=== PATIENT | male | born 1975 | race Caucasian/White ===

== ENCOUNTER 2021-09-26 16:06 | Inpatient (IN) ==
[2021-09-26] MEDS ORDERED: ONDANSETRON INJ 2 MG/ML 2 ML VIAL IV STA (16:14)
--- NOTE | 2021-09-26 16:38 | Emergency Department Note ---
Impression & Plan SBO (small bowel obstruction), Crohn disease, Colostomy present, Abdominal pain ED Provider Note NAME: LINDA FOLEY AGE: 46 SEX: M : 1975 ARRIVES VIA: Walk-In INFORMANT: Patient, ED PROVIDER(S): Darryl Zacarias MD Chief Complaint: Abdominal pain HPI: Patient presents due to concern for worsening abdominal pain and decreased ostomy output from his left lower quadrant ostomy. The patient states this feel s fairly similar to when he had a prior bowel obstruction approximately a year ago. The patient is followed with GI and has a known parastomal hernia. The patient follows with GI and rolling siblings in [facility] Dr. Fox. Patient did have nausea with associated vomiting that was nonbloody nonbilious. The patient denies any fevers or chills. The patient has known history of occasional alcohol use but none recently. The patient denies any falls or trauma. The patient did self administer an enema in the ostomy and he states nothing came out at that time. Patient does have pain that is achy well localized to left lower quadrant near the ostomy and states it seems more full than normal. Patient denies any blood from ostomy site. Patient denies any narcotics use or antihistamines. ROS: See HPI for pertinent positives and negatives. A total of 10 systems were reviewed and otherwise negative. Past medical history: See below Surgical history: See below Social history: See below Physical Exam: GENERAL: NAD, wearing a mask, non-toxic. EYE EXAM: Normal conjunctiva. PERRL, no anisocoria and EOM's grossly intact w/o pain. NECK: Supple, no nuchal rigidity, no adenopathy, non-tender. No signs of meningismus. LUNGS: Clear to auscultation. Normal chest wall mechanics. HEART: NSR, no MRG. ABDOMEN: Abdomen soft, left lower quadrant ostomy in place with bag, parastomal hernia noted, TTP present. No guarding or rebound. BACK: No CVA TTP. SKIN: No rashes and no bruising. UPPER EXTREMITIES: Upper extremities are grossly normal. LOWER EXTREMITIES: Grossly normal, no edema. NEURO EXAM: A&O x3, cranial nerves II-XII grossly intact, normal speech, moves all 4 extremities on command w/o issue. Differential diagnoses: Appendicitis, testicular torsion, infections, diverti culitis, UTI, obstruction, mesenteric ischemia, aortic pathology, inflammatory bowel disease, renal colic, PUD, pancreatitis, biliary pathology, hernia, volvulus, constipation, as well as other pathologies. Course: Patient was seen and evaluated the bedside. Full history physical exam was performed. Imaging Studies: See Below Cardiac monitoring: An order was placed for continuous cardiac monitoring. The monitor shows a rate of 82 with sinus rhythm. MDM: Patient presents due to concern for abdominal pain. Blood work is obtained along with CT abdomen pelvis. Patient blood work shows a white count of 12 with a normal H&H and platelet count. The patient's kidney function is unremarkable. The patient's urinalysis does not show any obvious infection. Patient CT abdomen pelvis does show likely partial small bowel obstruction associated with the patient's parastomal hernia. I did speak with the on-call general surgeon Dr. Castro. Given the complicated nature he stated that conservative management may be appropriate but that if this was an operative needed that he would not be able to proceed with surgery given the complicated nature. I did convey this discussion with the patient who stated that he believes that it will improve as it has in the past. Patient did have an NG that was ordered. The patient did state that he had a small amount of stool coming from the ostomy in the interim. The patient was admitted to the medicine service by Dr. Trinh. 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 Beliefs That Will Affect Care: None Current Living Situation: Alone Other Information That Helps Us Care for You: No Feels Safe at Home: Yes Safety Concerns: Feels Safe At This Time Assistive Devices: Contacts Allergies Allergies Allergy/AdvReac Type Severity Reaction Status Date / Time No Known Allergies Allergy Unverified 09/26/21 19:26 Home Meds Home Medications Medication Instructions Recorded Confirmed azathioprine 50 mg tablet 150 mg PO QAM 09/26/21 09/26/21 Results & Data (ED) Vital Signs Vital Signs - 24 hr 09/26/21 16:10 09/26/21 17:01 09/26/21 17:14 Temperature 36.3 C L Temperature Source Temporal Artery Scan Pulse Rate 80 66 Pulse Rate from SpO2 Sensor 66 Respiratory Rate 18 16 Respiratory Effort / Characteristics Non-Labored Respiratory Depth Normal Respiratory Pattern Regular Blood Pressure 171/114 H Blood Pressure Mean 133 Pulse Oximetry 100 100 100 Oxygen Delivery Method Room Air Room Air Sepsis Recent Fever Within 48 Hours No Sepsis New/Unexplained Change in Mental Status No Sepsis Action Taken by Nursing No Action Required 09/26/21 17:22 09/26/21 18:00 Temperature Temperature Source Pulse Rate 67 62 Pulse Rate from SpO2 Sensor 68 63 Respiratory Rate 17 18 Respiratory Effort / Characteristics Respiratory Depth Respiratory Pattern Blood Pressure 140/98 142/83 H Blood Pressure Mean 112 102 Pulse Oximetry 100 95 Oxygen Delivery Method Sepsis Recent Fever Within 48 Hours Sepsis New/Unexplained Change in Mental Status Sepsis Action Taken by [facility] Medications Current Medication List: was personally reviewed by me Laboratory Data Attestation: I reviewed the patient's lab results. Result diagrams: 09/26/21 16:55 09/26/21 16:55 Lab Results 09/26/21 09/26/21 09/26/21 Range/Units 16:45 16:55 16:55 WBC 12.61 H (4.8-10.8) K/uL RBC 4.71 (4.7-6.1) M/uL Hgb 14.9 (14.0-18.0) g/dL Hct 43.1 (42-52) % MCV 91.5 (80-100) fL MCH 31.6 (25-34) pg MCHC 34.6 (32-36) g/dL RDW Std Deviation 42.5 (36.4-46.3) fL RDW Coeff of Marie 12.5 (11.5-14.5) % Plt Count 206 (130-400) K/uL MPV 10.4 (7.4-10.4) fL Immature Gran % (Auto) 0.2 % Neut % (Auto) 87.5 % Lymph % (Auto) 7.4 % [place] % (Auto) 4.4 % Eos % (Auto) 0.3 % Baso % (Auto) 0.2 % Neut # (Auto) 11.04 H (1.4-6.5) K/uL Lymph # (Auto) 0.93 L (1.2-3.4) K/uL [place] # (Auto) 0.55 (0.11-0.59) K/uL Eos # (Auto) 0.04 (0-0.5) K/uL Baso # (Auto) 0.02 (0-0.2) K/uL Immature Gran # (Auto) 0.03 H (0.00-0.02) K/uL Sodium 139 (136-145) mmol/L Potassium 4.6 (3.5-5.1) mmol/L Chloride 107 (98-107) mmol/L Carbon Dioxide 22 (21-32) mmol/L Anion Gap (3-11) BUN 13 (6-23) mg/dl Creatinine 0.98 (0.6-1.4) mg/dl Est Cr Clr Drug Dosing Not Reportable Est GFR ( Amer) 108.2 ml/min Est GFR (Non-Af Amer) 93.4 ml/min BUN/Creatinine Ratio 13.3 (10-20) Glucose 144 H (70-99(Fasting)) mg/dl Calcium 9.3 (8.5-10.1) mg/dl Total Bilirubin 0.5 (0.2-1.0) mg/dl AST 19 (13-39) U/L ALT 38 (7-52) U/L Alkaline Phosphatase 114 H (34-104) U/L Total Protein 7.6 (6.0-8.3) gm/dl Albumin 4.6 (3.4-5.0) gm/dl Globulin 3.0 (2.5-4.0) gm/dl Albumin/Globulin Ratio 1.5 (0.9-2) Lipase 13 (11-82) U/L Urine Color Urine Appearance (Clear) Urine pH (4.5-7.5) Ur Specific [place] (1.000-1.030) Urine Protein (Negative) Urine Glucose (UA) (Negative) Urine Ketones (Negative) Urine Blood (Negative) Urine Nitrite (Negative) Urine Bilirubin (Negative) Urine Urobilinogen (Negative) Ur Leukocyte Esterase (Negative) SARS-CoV-2, RNA, NAAT (NEGATIVE) 09/26/21 09/26/21 Range/Units 18:30 20:15 WBC (4.8-10.8) K/uL RBC (4.7-6.1) M/uL Hgb (14.0-18.0) g/dL Hct (42-52) % MCV (80-100) fL MCH (25-34) pg MCHC (32-36) g/dL RDW Std Deviation (36.4-46.3) fL RDW Coeff of Marie (11.5-14.5) % Plt Count (130-400) K/uL MPV (7.4-10.4) fL Immature Gran % (Auto) % Neut % (Auto) % Lymph % (Auto) % [place] % (Auto) % Eos % (Auto) % Baso % (Auto) % Neut # (Auto) (1.4-6.5) K/uL Lymph # (Auto) (1.2-3.4) K/uL [place] # (Auto) (0.11-0.59) K/uL Eos # (Auto) (0-0.5) K/uL Baso # (Auto) (0-0.2) K/uL Immature Gran # (Auto) (0.00-0.02) K/uL Sodium (136-145) mmol/L Potassium (3.5-5.1) mmol/L Chloride (98-107) mmol/L Carbon Dioxide (21-32) mmol/L Anion Gap (3-11) BUN (6-23) mg/dl Creatinine (0.6-1.4) mg/dl Est Cr Clr Drug Dosing Est GFR ( Amer) ml/min Est GFR (Non-Af Amer) ml/min BUN/Creatinine Ratio (10-20) Glucose (70-99(Fasting)) mg/dl Calcium (8.5-10.1) mg/dl Total Bilirubin (0.2-1.0) mg/dl AST (13-39) U/L ALT (7-52) U/L Alkaline Phosphatase (34-104) U/L Total Protein (6.0-8.3) gm/dl Albumin (3.4-5.0) gm/dl Globulin (2.5-4.0) gm/dl Albumin/Globulin Ratio (0.9-2) Lipase (11-82) U/L Urine Color Yellow Urine Appearance Clear (Clear) Urine pH 8.0 H (4.5-7.5) Ur Specific [place] > 1.045 H (1.000-1.030) Urine Protein Negative (Negative) Urine Glucose (UA) Negative (Negative) Urine Ketones Negative (Negative) Urine Blood Negative (Negative) Urine Nitrite Negative (Negative) Urine Bilirubin Negative (Negative) Urine Urobilinogen Negative (Negative) Ur Leukocyte Esterase Negative (Negative) SARS-CoV-2, RNA, NAAT NEGATIVE (NEGATIVE) Administered Medications Lactated Ringer's (Lr) 1,000 mls @ 175 mls/hr IV [id number] MARLA Stop: 09/27/21 09:42 Last Admin: 09/26/21 23:24 Dose: 175 mls/hr Documented by: [id number] Morphine Sulfate (Morphine Sulfate 2 Mg/Ml Carp) 2 mg IV Q3H PRN PRN Reason: Pain (1,2,3,4,5) & Pre PT Stop: 10/10/21 22:16 Last Admin: 09/26/21 23:24 Dose: 2 mg Documented by: [id number] Discontinued Medications Hydromorphone HCl (Hydromorphone Inj 0.5 Mg/0.5 Ml Syr) 0.5 mg IV NOW STA Stop: 09/26/21 18:58 Last Admin: 09/26/21 19:31 Dose: 0.5 mg Documented by: [id number] Piperacillin Sod/Tazobactam Sod (Zosyn) 4.5 gm in 120 mls @ 240 mls/hr IV NOW STA; Protocol Stop: 09/26/21 21:54 Last Admin: 09/26/21 23:23 Dose: 240 mls/hr Documented by: [id number] Ioversol (Optiray 320 100ml) 94 ml IV ONCE ONE Stop: 09/26/21 17:33 Last Admin: 09/26/21 17:33 Dose: 94 ml Documented by: [id number] Lidocaine HCl (Lidocaine Viscous 2% 15 Ml Udc) 3 ml TOP NOW ONE Stop: 09/26/21 19:47 Last Admin: 09/26/21 20:25 Dose: Not Given Documented by: [id number] Morphine Sulfate (Morphine Sulfate 4 Mg/Ml 1 Ml Carp\Vial) 4 mg IV NOW STA Stop: 09/26/21 17:00 Last Admin: 09/26/21 17:17 Dose: 4 mg Documented by: [id number] Ondansetron HCl (Ondansetron Inj 2 Mg/Ml 2 Ml Vial) 4 mg IV NOW STA Stop: 09/26/21 16:15 Last Admin: 09/26/21 16:56 Dose: 4 mg Documented by: [id number] Imaging Data Radiologist's Impression: Abdomen/Pelvis CT 09/26/21 16:50 CT abd pelvis IV con only CLINICAL HISTORY: r/o obstruction, crohn's, decreased ostomy output TECHNIQUE: Helical axial images of the abdomen and pelvis were obtained and displayed. Automated dose lowering techniques and/or adjustment according to patient size were utilized for this exam. This exam was performed with intravenous contrast. CT DOSE: 1817.09 mGy.cm COMPARISON: None available at the time of this dictation. FINDINGS: Lower chest: No acute abnormality Liver: Unremarkable. No focal lesions are seen. Gallbladder and biliary tree: No calcified gallstones. Normal caliber wall. No intra- or extrahepatic biliary ductal dilation. Pancreas: Unremarkable, no focal lesions. Spleen: Unremarkable. Adrenals: Nodularity of the adrenal glands is noted. Kidneys and ureters: Unremarkable. Bladder: Unremarkable. Reproductive organs: Unremarkable. Bowel: Multiple distended loops of small bowel are seen measuring up to 42 mm in diameter. No sharp proximal transition point is seen, a distal transition point is seen as the loop of bowel entering the peristomal hernia. Bowel loops in the hernia itself are decompressed. Patient is status post colectomy with ostomy. Lymph nodes Retroperitoneal: Subcentimeter lenka hepatis nodes are noted. Mesenteric: Unremarkable. Pelvic: Unremarkable. Peritoneum: Fat stranding is seen about the area of small bowel dilation. Vessels: Unremarkable. Abdominal wall: A parastomal hernia is seen with multiple loops of bowel. A small amount of fat stranding is seen. Bones: Degenerative changes in the visualized spine. IMPRESSION: Findings are compatible with a small bowel obstruction, likely partial originating at the entry to the parastomal hernia. ACT 112: Negative or not required by law. Electronically signed by: Guicho Pimentel M.D. 09/26/2021 6:40 PM KUB X-Ray 09/26/21 20:06 XR KUB/Abdomen 1 view CLINICAL HISTORY: NG confirmation TECHNIQUE: 1 view of the abdomen was obtained. Comparison: None available at the time of this dictation. FINDINGS: The enteric tube tip lies within the stomach, however the side port is above the diaphragm. The osseous structures are grossly unremarkable. Gas distended loops of bowel are seen measuring up to 54 mm. A moderate amount of stool is noted within the large bowel. IMPRESSION: Enteric tube side-port lies below the diaphragm, the tube can be advanced approximately 7 cm for improved positioning. ACT 112: Negative or not required by law. Electronically signed by: Guicho Pimentel M.D. 09/26/2021 8:46 PM Discharge Plan Visit Data Chief Complaint: Abdominal Pain Stated Complaint: CROHNS, BLOCKAGE ED Provider: Darryl Zacarias Discharge Problem: SBO (small bowel obstruction), Crohn disease, Colostomy present, Abdominal pain Patient Disposition: Admitted As Inpatient Discharge Instructions Interventions: ED Discharge Assessment Last Done: 09/26/21 22:10
[2021-09-26] MEDS ORDERED: MoRPHine SULFATE 4 MG/ML 1 ML CARP\\VIAL IV STA (16:59)
[2021-09-26 17:08] LABS: Basophils # (auto) 0.02 K/uL (0-0.2); Basophils % (auto) 0.2 %; Eosinophils # (auto) 0.04 K/uL (0-0.5); Eosinophils % (auto) 0.3 %; Hematocrit (blood only) 43.1 % (42-52); Hemoglobin 14.9 g/dL (14.0-18.0); Immature Granulocytes # (auto) 0.03 K/uL (0.00-0.02); Immature Granulocytes % (auto) 0.2 %; Lymphocytes # (auto) 0.93 K/uL (1.2-3.4); Lymphocytes % (auto) 7.4 %; Mean Corpuscular Hemoglobin 31.6 pg (25-34); Mean Corpuscular Hgb Conc 34.6 g/dL (32-36); Mean Corpuscular Volume 91.5 fL (80-100); Mean Platelet Volume 10.4 fL (7.4-10.4); Monocytes # (auto) 0.55 K/uL (0.11-0.59); Monocytes % (auto) 4.4 %; Neutrophils # (auto) 11.04 K/uL (1.4-6.5); Neutrophils % (auto) 87.5 %; Platelet Count 206 K/uL (130-400); RDW Coefficient of Variation 12.5 % (11.5-14.5); RDW Standard Deviation 42.5 fL (36.4-46.3); Red Blood Count 4.71 M/uL (4.7-6.1); White Blood Count 12.61 K/uL (4.8-10.8)
[2021-09-26 17:10] LABS: Alanine Aminotransferase 38 U/L (7-52); Albumin Globulin Ratio 1.5 (0.9-2); Albumin Level 4.6 gm/dl (3.4-5.0); Alkaline Phosphatase 114 U/L (34-104); BUN Creatinine Ratio 13.3 (10-20); Bilirubin,Total 0.5 mg/dl (0.2-1.0); Blood Urea Nitrogen 13 mg/dl (6-23); Calcium 9.3 mg/dl (8.5-10.1); Carbon Dioxide 22 mmol/L (21-32); Chloride 107 mmol/L (98-107); Est GFR (African American) 108.2 ml/min; Est GFR (Non-African American) 93.4 ml/min; Glucose 144 mg/dl (70-99(Fasting)); Lipase 13 U/L (11-82); Total Protein 7.6 gm/dl (6.0-8.3)
[2021-09-26] MEDS ORDERED: OPTIRAY 320 100ml IV ONE (17:32)
[2021-09-26 17:37] LABS: Potassium 4.6 mmol/L (3.5-5.1)
--- NOTE | 2021-09-26 18:41 | CT Scan Report ---
CT abd pelvis IV con only CLINICAL HISTORY: r/o obstruction, crohn's, decreased ostomy output TECHNIQUE: Helical axial images of the abdomen and pelvis were obtained and displayed. Automated dose lowering techniques and/or adjustment according to patient size were utilized for this exam. This e xam was performed with intravenous contrast. CT DOSE: 1817.09 mGy.cm COMPARISON: None available at the time of this dictation. FINDINGS: Lower chest: No acute abnormality Liver: Unremarkable. No focal lesions are seen. Gallbladder and biliary tree: No calcified gallstones. Normal caliber wall. No intra- or extrahepatic biliary ductal dilation. Pancreas: Unremarkable, no focal lesions. Spleen: Unremarkable. Adrenals: Nodularity of the adrenal glands is noted. Kidneys and ureters: Unremarkable. Bladder: Unremarkable. Reproductive organs: Unremarkable. Bowel: Multiple distended loops of small bowel are seen measuring up to 42 mm in diameter. No sharp p roximal transition point is seen, a distal transition point is seen as the loop of bowel entering the peristomal hernia. Bowel loops in the hernia itself are decompressed. Patient is status post colecto my with ostomy. Lymph nodes Retroperitoneal: Subcentimeter lenka hepatis nodes are noted. Mesenteric: Unremarkable. Pelvic: Unremarkable. Peritoneum: Fat stranding is seen about the area of small bowel dilation. Vessels: Unremarkable. Abdominal wall: A parastomal hernia is seen with multiple loops of bowel. A small amount of fat stran ding is seen. Bones: Degenerative changes in the visualized spine. IMPRESSION: Findings are compatible with a small bowel obstruction, likely partial originating at the entry to th e parastomal hernia. ACT 112: Negative or not required by law. Electronically signed by: Guicho Pimentel M.D. 09/26/2021 6:40 PM
[2021-09-26 18:51] LABS: Appearance Urine Clear (Clear); Bilirubin Urine Negative (Negative); Blood Urine Negative (Negative); Color Urine Yellow; Glucose Urine UA Negative (Negative); Ketones Urine Negative (Negative); Leukocyte Esterase Urine Negative (Negative); Nitrite Urine Negative (Negative); Protein Urine Negative (Negative); Specific Gravity Urine > 1.045 (1.000-1.030); Urobilinogen Urine Negative (Negative)
[2021-09-26] MEDS ORDERED: HYDROmorphone INJ 0.5 MG/0.5 ML SYR IV STA (18:57)
[2021-09-26] MEDS ORDERED: LIDOCAINE VISCOUS 2% 15 ML UDC TOP ONE (19:46)
--- NOTE | 2021-09-26 20:47 | XRay Report ---
XR KUB/Abdomen 1 view CLINICAL HISTORY: NG confirmation TECHNIQUE: 1 view of the abdomen was obtained. Comparison: None available at the time of this dictation. FINDINGS: The enteric tube tip lies within the stomach, however the side port is above the diaphragm. The osseo us structures are grossly unremarkable. Gas distended loops of bowel are seen measuring up to 54 mm. A moderate amount of stool is noted within the large bowel. IMPRESSION: Enteric tube side-port lies below the diaphragm, the tube can be advanced approximately 7 cm for impr ramon positioning. ACT 112: Negative or not required by law. Electronically signed by: Guicho Pimentel M.D. 09/26/2021 8:46 PM
--- NOTE | 2021-09-26 20:58 | History & Physical Report ---
Date of Service September 26, 2021 Assessment & Plan (1) SBO (small bowel obstruction): Plan: - General surgery consulted in ED, recommending conservative treatment for now, would require transfer should he require surgery. - NG tube placed in ED, KUB reveals proper placement however needs to be advanced 7cm--done. Will order KUB to confirm adequate advancement. - NPO with maintenance IVF @ 175cc/hr x2 L. - Zosyn for empiric coverage. - KUB in AM to follow progression. - IV morphine for pain, zofran for nausea/vomiting. - CBC and BMP in AM. (2) Crohn disease: Plan: - S/p colectomy with ostomy in place, no output since this AM. - Hold azathioprine for now, restart when tolerating PO. Plan: - Admit to med/surg. - SCDs for DVT ppx. - Full Code. History of Present Illness Chief Complaint: abdominal pain Primary Care Provider: Sherwin Goldstein Mr. Zavala is a 46-year-old male with a past medical history significant for Crohn's disease s/p colectomy with LLQ ostomy who presents today with worsening abdominal pain and decreased ostomy output. Shortly after eating 3 donuts this morning, patient developed diffuse, stabbing abdominal pain. He noted there was no output from his ostomy site for several hours. Due to the pain, and his history of Crohn's with SBOs in the past he presented to ED for evaluation. Of note patient usually goes to [facility] for his care. He had nausea and one episode of nonbloody emesis earlier today, otherwise he is doing well with no fever/chills, chest pain, palpitations, shortness of breath, hematochezia or melena. In ED, slightly hypertensive 142/83, otherwise vital signs within the limits and stable. Labs significant for WBC 12.61, glucose 144, alk phos 114. Otherwise all labs within normal limits, no electrolyte abnormalities. CT A/P showed multiple distended loops of small bowel measuring 14 mm in diameter, consistent with SBO. In ED, patient received morphine, Dilaudid, and Zofran. An NG tube was placed, KUB ordered confirming successful placement. Hospitalist team was consulted for admission. Allergies Allergy/AdvReac Type Severity Reaction Status Date / Time No Known Allergies Allergy Unverified 09/26/21 19:26 Home Medications Medication Instructions Recorded Confirmed Type azathioprine 50 mg tablet 150 mg PO QAM 09/26/21 09/26/21 History Past Med/Surg History Medical History Colostomy present Crohn disease Surgical History History of intestinal surgery Social History Smoking Status: Current some day smoker Second Hand Exposure: No; Do You Dip or Chew Tobacco: No; Tobacco Cessation Education Requested by Patient: No Hx Alcohol Use: Yes Alcohol type: beer Hx Substance Use: No Preferred Language: Maltese 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 Beliefs That Will Affect Care: None Current Living Situation: Alone Other Information That Helps Us Care for You: No Feels Safe at Home: Yes Safety Concerns: Feels Safe At This Time Assistive Devices: Contacts Review of Systems Review of Systems: Constitutional: No fever/chills, weakness, fatigue, myalgias, anorexia, night sweats Eyes: No diplopia, no worsening or blurred vision ENT: normal hearing, no trouble swallowing Respiratory: No cough, sputum, dyspnea at rest or on exertion Cardiovascular: No chest pain, tightness or palpitations Abdomen: abdominal pain this Am, with nausea, emesis x1 has since resolve; no diarrhea or constipation : Denies dysuria, hematuria, increased urgency/frequency, urinary retention Musculoskeletal: No joint pain, calf pain, swelling Neurologic: No weakness, numbness/tingling, or balance problems Psychiatric: No anxiety or depression Skin: No rash or itch Physical Exam Physical Exam: General: awake, alert, no apparent distress, NG tube in place Head: Normocephalic, atraumatic ENT: PERRL, EOMI, no pharyngeal exudate, mucous membranes moist Chest: Clear to auscultation, on room air, no adventitious breath sounds Cardiac: Regular rate and rhythm, no murmur, no JVD, normal peripheral pulses, good capillary refill Abdominal: peristomal hernia present, ostomy in place; NABS x 4 quadrants, soft, nontender to palpation, no rebound, guarding or tenderness Extremities: Normal inspection, no peripheral edema or erythema, calfs nontender to palpation Psych: Normal mood and affect Neuro: AAO x 3, strength intact bilaterally and rated 5/5, no motor deficits, speech is clear, no peripheral sensory deficits Skin: no rash or erythema Results & Data Results & Data ([facility]) Vital Signs (Past 12 Hours) Vital Signs Temp Pulse Resp BP Pulse Ox 09/26/21 18:00 62 18 142/83 H 95 09/26/21 17:22 67 17 140/98 100 09/26/21 17:14 66 16 100 09/26/21 17:01 100 09/26/21 16:10 36.3 C L 80 18 171/114 H 100 Laboratory Results Abnormal lab results 09/26/21 09/26/21 09/26/21 Range/Units 16:45 16:55 18:30 WBC 12.61 H (4.8-10.8) K/uL Neut # (Auto) 11.04 H (1.4-6.5) K/uL Lymph # (Auto) 0.93 L (1.2-3.4) K/uL Immature Gran # (Auto) 0.03 H (0.00-0.02) K/uL Glucose 144 H (70-99(Fasting)) mg/dl Alkaline Phosphatase 114 H (34-104) U/L Urine pH 8.0 H (4.5-7.5) Ur Specific [place] > 1.045 H (1.000-1.030) Diagnostic Findings Abdomen/Pelvis CT 09/26/21 16:50 CT abd pelvis IV con only CLINICAL HISTORY: r/o obstruction, crohn's, decreased ostomy output TECHNIQUE: Helical axial images of the abdomen and pelvis were obtained and displayed. Automated dose lowering techniques and/or adjustment according to patient size were utilized for this exam. This exam was performed with intravenous contrast. CT DOSE: 1817.09 mGy.cm COMPARISON: None available at the time of this dictation. FINDINGS: Lower chest: No acute abnormality Liver: Unremarkable. No focal lesions are seen. Gallbladder and biliary tree: No calcified gallstones. Normal caliber wall. No intra- or extrahepatic biliary ductal dilation. Pancreas: Unremarkable, no focal lesions. Spleen: Unremarkable. Adrenals: Nodularity of the adrenal glands is noted. Kidneys and ureters: Unremarkable. Bladder: Unremarkable. Reproductive organs: Unremarkable. Bowel: Multiple distended loops of small bowel are seen measuring up to 42 mm in diameter. No sharp proximal transition point is seen, a distal transition point is seen as the loop of bowel entering the peristomal hernia. Bowel loops in the hernia itself are decompressed. Patient is status post colectomy with ostomy. Lymph nodes Retroperitoneal: Subcentimeter lenka hepatis nodes are noted. Mesenteric: Unremarkable. Pelvic: Unremarkable. Peritoneum: Fat stranding is seen about the area of small bowel dilation. Vessels: Unremarkable. Abdominal wall: A parastomal hernia is seen with multiple loops of bowel. A small amount of fat stranding is seen. Bones: Degenerative changes in the visualized spine. IMPRESSION: Findings are compatible with a small bowel obstruction, likely partial originating at the entry to the parastomal hernia. ACT 112: Negative or not required by law. Electronically signed by: Guicho Pimentel M.D. 09/26/2021 6:40 PM KUB X-Ray 09/26/21 20:06 XR KUB/Abdomen 1 view CLINICAL HISTORY: NG confirmation TECHNIQUE: 1 view of the abdomen was obtained. Comparison: None available at the time of this dictation. FINDINGS: The enteric tube tip lies within the stomach, however the side port is above the diaphragm. The osseous structures are grossly unremarkable. Gas distended loops of bowel are seen measuring up to 54 mm. A moderate amount of stool is noted within the large bowel. IMPRESSION: Enteric tube side-port lies below the diaphragm, the tube can be advanced approximately 7 cm for improved positioning. ACT 112: Negative or not required by law. Electronically signed by: Guicho Pimentel M.D. 09/26/2021 8:46 PM Code Status & VTE Plan Code Status Full Code. Supervising Physician Co-Signing Physician Notes Attending addendum: I have physically seen this patient, have supervised the ANDREA's activities, and agree with the H&P unless as otherwise noted. Assessment and Plan: Small bowel obstruction- NPO LR at 175 mils per hour x2 L Zosyn 4.5 g IV every 8 hours Zofran 4 mg IV every 6 hours as needed Famotidine 20 mg IV every 12 hours General surgery has been consulted by the ED, and reports that if patient needs surgery, they will be transferred to another facility Crohn's disease- Status post colectomy with ostomy No ostomy output since morning Holding azathioprine until able to take p.o. again Remaining orders and notations as noted PG Care Time/CCT Total # of Minutes Spent Total Time Spent with Patient: Total time spent is greater than 50% in coordination of care (as documented) at patient's floor/unit and/or counseling patient: Coding Level of Care Code 78432 Initial Inpt Care Lvl 3 Diagnoses SBO (small bowel obstruction) K56.609 Crohn disease K50.90
[2021-09-26] MEDS ORDERED: PIPERACILLIN/TAZOBACTAM 4.5 GM/120 ML BAG IV STA (21:25)
--- NOTE | 2021-09-26 21:55 | XRay Report ---
XR KUB/Abdomen 1 view CLINICAL HISTORY: confirm NG tube placement TECHNIQUE: 1 view of the abdomen was obtained. Comparison: Comparison is made to abdomen radiograph 09/26/2021 at 2038 hours FINDINGS: The enteric tube has been advanced, the side-port and tip now projected over the stomach. The osseous structures are grossly unremarkable. Partial visualization of dilated loops of small bowel as above. IMPRESSION: Enteric tube has been advanced and is now in satisfactory position. ACT 112: Negative or not required by law. Electronically signed by: Guicho Pimentel M.D. 09/26/2021 9:52 PM
[2021-09-26] MEDS ORDERED: ONDANSETRON INJ 2 MG/ML 2 ML VIAL IV PRN (22:17)
[2021-09-26] MEDS: MoRPHine SULFATE 2 MG/ML CARP IV PRN (23:24)
[2021-09-26] MEDS: LACTATED RINGER'S 1,000 ML IV SCH (23:24)
[2021-09-27] MEDS: MoRPHine SULFATE 4 MG/ML 1 ML CARP\\VIAL IV PRN ×5 (03:41→22:05)
[2021-09-27] MEDS: PIPERACILLIN/TAZOBACTAM 4.5 GM in DEXTROSE 5% 100 ML IV SCH ×3 (04:12→19:29)
[2021-09-27] MEDS: LACTATED RINGER'S 1,000 ML IV SCH (04:19)
[2021-09-27 06:21] LABS: Albumin Globulin Ratio 1.6 (0.9-2); Albumin Level 4.2 gm/dl (3.4-5.0); BUN Creatinine Ratio 13.2 (10-20); Bilirubin,Total 0.7 mg/dl (0.2-1.0); Calcium 8.9 mg/dl (8.5-10.1); Est GFR (African American) 118.4 ml/min; Est GFR (Non-African American) 102.1 ml/min; Globulin 2.7 gm/dl (2.5-4.0); Potassium 4.1 mmol/L (3.5-5.1); Total Protein 6.9 gm/dl (6.0-8.3)
--- NOTE | 2021-09-27 09:17 | XRay Report ---
XR KUB/Abdomen 1 view CLINICAL HISTORY: follow SBO progression. COMPARISON STUDY: 09/26/2021 TECHNIQUE: Single view of the abdomen. FINDINGS: Compared to previous examination, no gross small bowel loop dilatation is identified. There is no milena dence for organomegaly or gross intra-abdominal mass. No abnormal calcifications are seen along the c ourse of the urinary tracts bilaterally. There is contrast present within what appears to be the blad atul. No acute osseous pathology. IMPRESSION: 1. No gross small bowel obstruction radiographically. ACT 112: Negative or not required by law. Electronically signed by: Ag Staton M.D. 09/27/2021 9:14 AM
--- NOTE | 2021-09-27 11:39 | Surgery Consultation ---
Date of Consultation September 27, 2021 Assessment & Plan (1) SBO (small bowel obstruction): -ngt in place -improving radiographically -clinically feels better -continue ngt -beginning to see colostomy output (2) Parastomal hernia: History of Present Illness Attending Physician: Deshawn Donaldson MD History of Present Illness This is a 46YO with Crohn's disease s/p resection and colostomy who was admitted worsening abdominal pain and decreased ostomy output from his left lower quadrant ostomy. His pain has improved and has had some output from the ostomy. NGT is in place with bilious output. The patient states this feels fairly similar to when he had a prior bowel obstruction approximately a year ago. The patient is followed with GI and has a known parastomal hernia. He had nausea with associated vomiting that was nonbloody nonbilious. The patient denies any fevers or chills. Allergies Allergy/AdvReac Type Severity Reaction Status Date / Time No Known Allergies Allergy Unverified 09/26/21 19:26 Home Medications Medication Instructions Recorded Confirmed Type azathioprine 50 mg tablet 150 mg PO QAM 09/26/21 09/26/21 History Patient History Medical History Colostomy present Crohn disease Surgical History History of intestinal surgery Social History Smoking Status: Current some day smoker Second Hand Exposure: No; Do You Dip or Chew Tobacco: No; Tobacco Cessation Education Requested by Patient: No Hx Alcohol Use: Yes Alcohol type: beer Hx Substance Use: No Preferred Language: Dominican Machine Cell Tuber Required: No Beliefs That Will Affect Care: None Current Living Situation: Alone Other Information That Helps Us Care for You: No Feels Safe at Home: Yes Safety Concerns: Feels Safe At This Time Assistive Devices: Contacts Review of Systems Constitutional: no fever, no chills and no anorexia Eyes: no problem reported Ear, Nose, Mouth, Throat: no problem reported Respiratory: no cough and no dyspnea Cardiovascular: no chest pain Gastrointestinal: + abdominal pain, + nausea and + change in bowel habits; no vomiting Genitourinary: no dysuria Musculoskeletal: no back pain Integumentary: no rash and no lesions Neurologic: no localized weakness and no generalized weakness Physical Exam Constitutional: WD/WN, vitals as above Eyes: PERRL, conjunctivae normal, anicteric sclerae ENMT: external ear and nose normal, oropharynx normal Neck: trachea midline Respiratory: normal respiratory effort, lungs clear to auscultation Cardiovascular: RRR, no murmur, no edema Gastrointestinal (Abdomen): Inspection/Auscultation: abdomen normal to inspection, + abdomen distended, normal bowel sounds and + abdominal surgical scar Percussion/Palpation: + abdomen tender, abdomen soft and + hernia (parastomal with chromic bowel within sac); no guarding and abdomen not rigid Musculoskeletal: Head/Neck/Chest: normocephalic and head atraumatic Skin: no rashes, warm and dry Psychiatric: Orientation: alert and oriented x 3 Results & Data ([facility]) Vital Signs (Past 12 Hours) Vital Signs Temp Pulse Resp BP Pulse Ox 09/27/21 07:44 36.7 C 61 18 144/93 H 94 09/27/21 04:16 16 144/87 H 09/27/21 04:12 173/[address] abd pelvis IV con only CLINICAL HISTORY: r/o obstruction, crohn's, decreased ostomy output TECHNIQUE: Helical axial images of the abdomen and pelvis were obtained and displayed. Automated dose lowering techniques and/or adjustment according to patient size were utilized for this exam. This exam was performed with intravenous contrast. CT DOSE: 1817.09 mGy.cm COMPARISON: None available at the time of this dictation. FINDINGS: Lower chest: No acute abnormality Liver: Unremarkable. No focal lesions are seen. Gallbladder and biliary tree: No calcified gallstones. Normal caliber wall. No intra- or extrahepatic biliary ductal dilation. Pancreas: Unremarkable, no focal lesions. Spleen: Unremarkable. Adrenals: Nodularity of the adrenal glands is noted. Kidneys and ureters: Unremarkable. Bladder: Unremarkable. Reproductive organs: Unremarkable. Bowel: Multiple distended loops of small bowel are seen measuring up to 42 mm in diameter. No sharp proximal transition point is seen, a distal transition point is seen as the loop of bowel entering the peristomal hernia. Bowel loops in the hernia itself are decompressed. Patient is status post colectomy with ostomy. Lymph nodes Retroperitoneal: Subcentimeter lenka hepatis nodes are noted. Mesenteric: Unremarkable. Pelvic: Unremarkable. Peritoneum: Fat stranding is seen about the area of small bowel dilation. Vessels: Unremarkable. Abdominal wall: A parastomal hernia is seen with multiple loops of bowel. A small amount of fat stranding is seen. Bones: Degenerative changes in the visualized spine. IMPRESSION: Findings are compatible with a small bowel obstruction, likely partial originating at the entry to the parastomal hernia. XR KUB/Abdomen 1 view CLINICAL HISTORY: follow SBO progression. COMPARISON STUDY: 09/26/2021 TECHNIQUE: Single view of the abdomen. FINDINGS: Compared to previous examination, no gross small bowel loop dilatation is identified. There is no evidence for organomegaly or gross intra-abdominal mass. No abnormal calcifications are seen along the course of the urinary tracts bilaterally. There is contrast present within what appears to be the bladder. No acute osseous pathology. IMPRESSION: 1. No gross small bowel obstruction radiographically.
[2021-09-27] MEDS: MoRPHine SULFATE 2 MG/ML CARP IV PRN (19:29)
[2021-09-28] MEDS: PIPERACILLIN/TAZOBACTAM 4.5 GM in DEXTROSE 5% 100 ML IV SCH ×3 (03:54→20:21)
[2021-09-28] MEDS: MoRPHine SULFATE 4 MG/ML 1 ML CARP\\VIAL IV PRN ×4 (04:17→20:20)
--- NOTE | 2021-09-28 08:36 | Hospitalist Progress Note ---
Date of Service September 28, 2021 Assessment & Plan (1) SBO (small bowel obstruction): Plan: (1) SBO (small bowel obstruction): - General surgery consulted in ED, recommending conservative treatment for now, would require transfer should he require surgery. - NG tube in place, clamped today to allow patient to walk and trial without suction - NPO, IVF LR at 125mL/hr - Zosyn for empiric coverage. - KUB on 09/27 showing resolved SBO compared to 09/26 - IV morphine for pain, has needed 22mg in last 24 hours - zofran for nausea/vomiting. - follow CBC, BMP (2) Crohn disease: - S/p colectomy with ostomy in place, no output since Tuesday. - Hold azathioprine for now, restart when tolerating PO. Dispo: med/surg DVT prophylaxis: SCDs for DVT ppx Code status: Full Code (2) Crohn disease: (3) Colostomy present: Admission and Anticipated Discharge Date Admission Date: September 26, 2021 Supervising Physician Co-Signing Physician Notes Attending attestation Pt seen and examined in concert with Dr. Wellington, . Dr. Anguiano. In agreement with the documented findings as noted in the resident documentation with any exceptions or additions as noted here. Improved nausea, some increase in ostomy output. Pain is well controlled on present regimen and does not reflect any chronic pain. On examination, S1/S2 nl RRR no MCG. CTAB. Abd BS+ve, TTP diffusely worst midline with evident peristomal hernia. NGT in place SBO - surgical consult - clamping NGT today and monitor. Continue pain control with morphine at present dose, ondansetron PRN. Continue Zosyn. IVF @ maintenance Crohns disease s/p colectomy w/ ostomy and peristomal hernia - holding azathioprine while NPO Else see resident documentation as noted. Subjective Patient states he is doing better today than yesterday with pain now at a dull 2/10 in center of abdomen and lower right quadrant. No nausea or vomiting. He has noticed a small amount of stool in ostomy bag since admission. He thinks he may have passed gas since admission, but unsure when. Review of Systems Constitutional: no fever or chills Respiratory: no cough or SOB Cardiovascular: Additional Comments: no chest pain or palpitations, no calf pain Gastrointestinal: 2/10 dull abdominal pain in center and lower right quadrants Genitourinary: no dysuria Physical Exam Constitutional: resting comfortably in bed, no acute distress Respiratory: normal respiratory effort, clear to auscultation bilaterally Cardiovascular: RRR no MRG appreciated Gastrointestinal (Abdomen): NG tube in place and draining dark green fluid. Mild tenderness to palpation in epigastric and central abdomen. Ostomy bag in place over lower left abdomen, no erythema, large peristomal hernia without pain to palpation. Multiple surgical scars visible on abdomen. Neurologic: A&Ox3 Results & Data Results & Data ([facility]) Vital Signs (Past 12 Hours) Vital Signs Temp Pulse Resp BP Pulse Ox 09/28/21 07:27 36.6 C 66 18 149/85 H 95 09/27/21 22:33 37.1 C 67 16 154/98 H 94 (1) Crohn disease Digestive disease complication type: with intestinal obstruction Gastrointestinal tract location: unspecified location Qualified Code(s): K50.912 - Crohn's disease, unspecified, with intestinal obstruction
--- NOTE | 2021-09-28 13:55 | Surgery Progress Note ---
Date of Service September 28, 2021 Assessment & Plan (1) SBO (small bowel obstruction): Plan: - slowly improving - radiographically improving - vss, afebrile - NGT with 1000 CC output last shift Plan: Continue conservative measures If surgery need, would need tertiary center with hernia specialist encouraged ambulation to increase GI motility Continue medical management Dr. Hernandez has seen and examined pt, agrees with above. (2) Parastomal hernia: Admission and Anticipated Discharge Date Admission Date: September 26, 2021 Subjective feeling better today pain is less today no nausea or vomiting some output in colostomy has not been walking much Physical Exam Constitutional: WD/WN, vitals as above + obese; no acute distress and not ill appearing Neck: normal visual inspection and trachea midline Respiratory: normal respiratory effort; no respiratory distress, no labored breathing and no retractions Gastrointestinal (Abdomen): Inspection/Auscultation: + abdominal surgical scar and + hypoactive bowel sounds; abdomen not distended and + abnormal bowel sounds Percussion/Palpation: + abdomen tender (at parastomal hernia) and abdomen soft; no guarding and abdomen not rigid There is LLQ colostomy, with some liquid stool present NGT present with dark brown output Skin: no rashes, warm and dry Psychiatric: A+Ox3, euthymic affect Results & Data ([facility]) Vital Signs (Past 12 Hours) Vital Signs Temp Pulse Resp BP Pulse Ox 09/28/21 07:27 36.6 C 66 18 149/85 H 95 Laboratory Results 09/28/21 09/28/21 Range/Units 14:31 14:31 WBC 9.64 (4.8-10.8) K/uL RBC 5.02 (4.7-6.1) M/uL Hgb 15.3 (14.0-18.0) g/dL Hct 45.0 (42-52) % MCV 89.6 (80-100) fL MCH 30.5 (25-34) pg MCHC 34.0 (32-36) g/dL RDW Std Deviation 41.2 (36.4-46.3) fL RDW Coeff of Marie 12.8 (11.5-14.5) % Plt Count 217 (130-400) K/uL MPV 10.8 H (7.4-10.4) fL Immature Gran % (Auto) 0.3 % Neut % (Auto) 78.3 % Lymph % (Auto) 13.5 % [place] % (Auto) 7.1 % Eos % (Auto) 0.8 % Baso % (Auto) 0.0 % Neut # (Auto) 7.55 H (1.4-6.5) K/uL Lymph # (Auto) 1.30 (1.2-3.4) K/uL [place] # (Auto) 0.68 H (0.11-0.59) K/uL Eos # (Auto) 0.08 (0-0.5) K/uL Baso # (Auto) 0.00 (0-0.2) K/uL Immature Gran # (Auto) 0.03 H (0.00-0.02) K/uL Sodium 138 (136-145) mmol/L Potassium 3.7 (3.5-5.1) mmol/L Chloride 102 (98-107) mmol/L Carbon Dioxide 26 (21-32) mmol/L Anion Gap 10 (3-11) BUN 13 (6-23) mg/dl Creatinine 1.00 (0.6-1.4) mg/dl Est Cr Clr Drug Dosing 131.9 ml/min Est GFR ( Amer) 105.6 ml/min Est GFR (Non-Af Amer) 91.1 ml/min BUN/Creatinine Ratio 13.0 (10-20) Glucose 100 H (70-99(Fasting)) mg/dl Calcium 9.6 (8.5-10.1) mg/dl
[2021-09-28] MEDS: LACTATED RINGER'S 1,000 ML IV SCH ×2 (13:57→21:20)
[2021-09-28 15:12] LABS: Eosinophils # (auto) 0.08 K/uL (0-0.5); Eosinophils % (auto) 0.8 %; Hemoglobin 15.3 g/dL (14.0-18.0); Immature Granulocytes # (auto) 0.03 K/uL (0.00-0.02); Immature Granulocytes % (auto) 0.3 %; Lymphocytes % (auto) 13.5 %; Mean Corpuscular Hemoglobin 30.5 pg (25-34); Mean Corpuscular Volume 89.6 fL (80-100); Mean Platelet Volume 10.8 fL (7.4-10.4); Monocytes # (auto) 0.68 K/uL (0.11-0.59); Monocytes % (auto) 7.1 %; Neutrophils # (auto) 7.55 K/uL (1.4-6.5); Neutrophils % (auto) 78.3 %; Platelet Count 217 K/uL (130-400); RDW Coefficient of Variation 12.8 % (11.5-14.5); RDW Standard Deviation 41.2 fL (36.4-46.3); Red Blood Count 5.02 M/uL (4.7-6.1); White Blood Count 9.64 K/uL (4.8-10.8)
[2021-09-28 15:21] LABS: Calcium 9.6 mg/dl (8.5-10.1); Creatinine Clr Calc Pharmacy 131.9 ml/min; Est GFR (African American) 105.6 ml/min; Est GFR (Non-African American) 91.1 ml/min; Potassium 3.7 mmol/L (3.5-5.1)
[2021-09-29] MEDS: MoRPHine SULFATE 4 MG/ML 1 ML CARP\\VIAL IV PRN ×2 (02:47→10:07)
[2021-09-29] MEDS: LACTATED RINGER'S 1,000 ML IV SCH ×3 (05:13→20:45)
[2021-09-29 05:58] LABS: Basophils # (auto) 0.01 K/uL (0-0.2); Basophils % (auto) 0.1 %; Eosinophils # (auto) 0.08 K/uL (0-0.5); Eosinophils % (auto) 0.7 %; Hematocrit (blood only) 41.9 % (42-52); Hemoglobin 14.7 g/dL (14.0-18.0); Immature Granulocytes # (auto) 0.01 K/uL (0.00-0.02); Immature Granulocytes % (auto) 0.1 %; Lymphocytes # (auto) 0.79 K/uL (1.2-3.4); Lymphocytes % (auto) 7.1 %; Mean Corpuscular Hemoglobin 32.2 pg (25-34); Mean Corpuscular Hgb Conc 35.1 g/dL (32-36); Mean Corpuscular Volume 91.7 fL (80-100); Mean Platelet Volume 10.6 fL (7.4-10.4); Monocytes # (auto) 0.85 K/uL (0.11-0.59); Monocytes % (auto) 7.7 %; Neutrophils # (auto) 9.32 K/uL (1.4-6.5); Neutrophils % (auto) 84.3 %; Platelet Count 198 K/uL (130-400); RDW Coefficient of Variation 12.5 % (11.5-14.5); RDW Standard Deviation 42.2 fL (36.4-46.3); Red Blood Count 4.57 M/uL (4.7-6.1); White Blood Count 11.06 K/uL (4.8-10.8)
[2021-09-29 06:20] LABS: Albumin Globulin Ratio 1.5 (0.9-2); Albumin Level 4.2 gm/dl (3.4-5.0); Bilirubin,Total 0.7 mg/dl (0.2-1.0); Calcium 9.1 mg/dl (8.5-10.1); Creatinine Clr Calc Pharmacy 141.9 ml/min; Est GFR (African American) 115.3 ml/min; Est GFR (Non-African American) 99.5 ml/min; Globulin 2.8 gm/dl (2.5-4.0); Potassium 3.6 mmol/L (3.5-5.1)
--- NOTE | 2021-09-29 10:03 | Hospitalist Progress Note ---
Date of Service September 29, 2021 Assessment & Plan (1) SBO (small bowel obstruction): Plan: (1) SBO (small bowel obstruction): - General surgery consulted in ED, recommending conservative treatment for now, would require transfer should he require surgery - KUB on 09/27 showing radiographically resolved SBO compared to 09/26 - NG tube in place, tolerated an hour clamped yesterday. Trial of clamped NG tube without suction not done today due to increasing pain and nausea this morning -NPO, trial of sips and chips if patient tolerating clamped NG tube - Patient noticing some flatulence and stool passing through ostomy today - IVF LR at 125mL/hr - d/c'd Zosyn this morning - IV morphine for pain, has needed 18mg in last 24 hours - zofran for nausea/vomiting - follow CBC, BMP (2) Crohn's disease: - S/p colectomy with ostomy in place, no output since Tuesday. - Hold azathioprine for now, restart when tolerating PO. (3) Slight leukocytosis - follow CBC tomorrow AM - possibly due to Chron's, azathiprine held since admission; less likely infectious etiology Dispo: med/surg DVT prophylaxis: SCDs for DVT ppx FEN/GI: NPO Code status: Full Code (2) Crohn disease: (3) Colostomy present: Admission and Anticipated Discharge Date Admission Date: September 26, 2021 Supervising Physician Co-Signing Physician Notes Attending attestation Pt seen and examined in concert with Dr. Wellington, . Dr. Anguiano. In agreement with the documented findings as noted in the resident documentation with any exceptions or additions as noted here. Improved nausea, slight increase in ostomy output, +/- flatus. Pain still controlled on present regimen. Mild nausea after 1 hr of clamping yesterday VS reviewed. On examination, S1/S2 nl RRR no MCG. CTAB. Abd BS+ve, TTP diffusely. Peristomal hernia. NGT in place SBO - surgical consult - intermittent clamping NGT today and monitor. Continue pain control with morphine, ondansetron PRN. Continue Zosyn. IVF @ maintenance. Trend BMP Leukocytosis - stopped Zosyn yesterday. Without fevers and very mild leukocytosis, will trend CBC and consider restart, further mgmt if condition deteriorates, labs progress. Crohns disease s/p colectomy w/ ostomy and peristomal hernia - holding azathioprine while NPO Else see resident/student documentation as noted. Subjective Patient is feeling better today, with no abdominal pain. Noticed some flatulence and stool output through the ostomy this morning. No nausea or vomiting this morning. Per nurse, by mid-day patient complaining of 8/10 abdominal pain with nausea around 10:30am. This afternoon, patient is no longer in pain and has no nausea. Review of Systems Constitutional: no fever or chills Respiratory: no cough or SOB Cardiovascular: Additional Comments: no chest pain or palpitations, no calf pain Gastrointestinal: no GI pain this AM Genitourinary: no dysuria Physical Exam Constitutional: resting comfortably in bed, no acute distress Respiratory: normal respiratory effort, clear to auscultation bilaterally Cardiovascular: RRR no MRG appreciated, no LE edema Gastrointestinal (Abdomen): NG tube in place and draining dark green fluid. Mild tenderness to palpation in epigastric are and lower left quadrant around ostomy. Ostomy bag in place over lower left abdomen, no erythema, large peristomal hernia without pain to palpation. Multiple surgical scars visible on abdomen. Some bowel sounds heard. Neurologic: A&Ox3 Results & Data Results & Data ([facility]) Vital Signs (Past 12 Hours) Vital Signs Temp Pulse Resp BP BP Pulse Ox 09/29/21 07:40 36.8 C 68 20 147/91 H 93 09/28/21 22:29 37.4 C 89 18 150/97 H 94 (1) Crohn disease Digestive disease complication type: with intestinal obstruction Gastrointestinal tract location: unspecified location Qualified Code(s): K50.912 - Crohn's disease, unspecified, with intestinal obstruction
--- NOTE | 2021-09-29 13:39 | XRay Report ---
KUB CLINICAL HISTORY: eval for SBO, high NGT output COMPARISON STUDY: CT of the abdomen and pelvis September 26, 2021. KUB September 27, 2021. FINDINGS: Tip of nasogastric tube is within the distal body of the stomach. Significant small bowel d ilatation has increased. Small bowel loops measure up to 7.6 cm in caliber. Multiple small bowel loop s are likely fluid-filled and therefore difficult to assess by radiography. IMPRESSION: Increase in small bowel dilatation consistent with a small bowel obstruction. ACT 112: Negative or not required by law. Electronically signed by: Carter Norris M.D. 09/29/2021 1:37 PM
--- NOTE | 2021-09-29 15:39 | Surgery Progress Note ---
Date of Service September 29, 2021 Assessment & Plan (1) SBO (small bowel obstruction): Plan: - Significant amount of NG tube output in the last 24 hours about 2600 cc. Last KUB on 612 showed no evidence of a persistent small bowel obstruction. Continues to have abdominal pain and requiring IV morphine pretty frequently. There is stool in colostomy however no significant output since last examination Plan: Continue conservative measures KUB today to further evaluate given high NG tube output Continue pain management but will try to avoid narcotics if possible If surgery need, would need tertiary center with hernia specialist encouraged ambulation to increase GI motility Continue medical management Dr. Hernandez has seen and examined pt, agrees with above. (2) Parastomal hernia: Admission and Anticipated Discharge Date Admission Date: September 26, 2021 Subjective Patient states that he is feeling better today than previous however is still r equiring IV morphine for pain management. He last had IV morphine at 10 AM. Has not noticed significant increase in ostomy output. No nausea no vomiting. Tolerated NG tube clamped while ambulating the hallway yesterday. Physical Exam Constitutional: WD/WN, vitals as above + obese; no acute distress and not ill appearing Neck: normal visual inspection and trachea midline Respiratory: normal respiratory effort; no respiratory distress Gastrointestinal (Abdomen): Inspection/Auscultation: + abdominal surgical scar (Multiple abdominal scars present) and + hypoactive bowel sounds; abdomen not distended and + abnormal bowel sounds Percussion/Palpation: + abdomen tender (At parastomal hernia) and abdomen soft; no guarding and abdomen not rigid Left lower quadrant colostomy with some liquid stool output however not significantly increased since yesterday's examination. NG tube with significant dark brown-green output. Skin: no rashes, warm and dry Psychiatric: A+Ox3, euthymic affect Results & Data ([facility]) Vital Signs (Past 12 Hours) Vital Signs Temp Pulse Resp BP BP Pulse Ox 09/29/21 15:00 36.3 C L 66 18 170/82 H 95 09/29/21 07:40 36.8 C 68 20 147/91 H 93 Laboratory Results 09/29/21 09/29/21 Range/Units 05:26 05:26 WBC 11.06 H (4.8-10.8) K/uL RBC 4.57 L (4.7-6.1) M/uL Hgb 14.7 (14.0-18.0) g/dL Hct 41.9 L (42-52) % MCV 91.7 (80-100) fL MCH 32.2 (25-34) pg MCHC 35.1 (32-36) g/dL RDW Std Deviation 42.2 (36.4-46.3) fL RDW Coeff of Marie 12.5 (11.5-14.5) % Plt Count 198 (130-400) K/uL MPV 10.6 H (7.4-10.4) fL Immature Gran % (Auto) 0.1 % Neut % (Auto) 84.3 % Lymph % (Auto) 7.1 % Becker % (Auto) 7.7 % Eos % (Auto) 0.7 % Baso % (Auto) 0.1 % Neut # (Auto) 9.32 H (1.4-6.5) K/uL Lymph # (Auto) 0.79 L (1.2-3.4) K/uL Becker # (Auto) 0.85 H (0.11-0.59) K/uL Eos # (Auto) 0.08 (0-0.5) K/uL Baso # (Auto) 0.01 (0-0.2) K/uL Immature Gran # (Auto) 0.01 (0.00-0.02) K/uL Sodium 138 (136-145) mmol/L Potassium 3.6 (3.5-5.1) mmol/L Chloride 100 (98-107) mmol/L Carbon Dioxide 27 (21-32) mmol/L Anion Gap 11 (3-11) BUN 13 (6-23) mg/dl Creatinine 0.93 (0.6-1.4) mg/dl Est Cr Clr Drug Dosing 141.9 ml/min Est GFR ( Amer) 115.3 ml/min Est GFR (Non-Af Amer) 99.5 ml/min BUN/Creatinine Ratio 14.0 (10-20) Glucose 97 (70-99(Fasting)) mg/dl Calcium 9.1 (8.5-10.1) mg/dl Total Bilirubin 0.7 (0.2-1.0) mg/dl AST 13 (13-39) U/L ALT 21 (7-52) U/L Alkaline Phosphatase 110 H (34-104) U/L Total Protein 7.0 (6.0-8.3) gm/dl Albumin 4.2 (3.4-5.0) gm/dl Globulin 2.8 (2.5-4.0) gm/dl Albumin/Globulin Ratio 1.5 (0.9-2)
[2021-09-29] MEDS ORDERED: KETOROLAC TROMETHAMINE 15 MG/ML VIAL IV PRN (17:35)
[2021-09-29] MEDS: ACETAMINOPHEN 1,000 MG/100 ML VIAL IV SCH (18:44)
[2021-09-30] MEDS: ACETAMINOPHEN 1,000 MG/100 ML VIAL IV SCH ×3 (02:53→18:43)
[2021-09-30] MEDS: LACTATED RINGER'S 1,000 ML IV SCH ×3 (04:57→22:10)
[2021-09-30 10:00] LABS: Basophils # (auto) 0.02 K/uL (0-0.2); Basophils % (auto) 0.2 %; Eosinophils # (auto) 0.07 K/uL (0-0.5); Eosinophils % (auto) 0.7 %; Hematocrit (blood only) 46.1 % (42-52); Hemoglobin 15.8 g/dL (14.0-18.0); Immature Granulocytes # (auto) 0.02 K/uL (0.00-0.02); Immature Granulocytes % (auto) 0.2 %; Lymphocytes # (auto) 0.89 K/uL (1.2-3.4); Lymphocytes % (auto) 9.1 %; Mean Corpuscular Hemoglobin 31.3 pg (25-34); Mean Corpuscular Hgb Conc 34.3 g/dL (32-36); Mean Corpuscular Volume 91.3 fL (80-100); Mean Platelet Volume 10.9 fL (7.4-10.4); Monocytes # (auto) 0.79 K/uL (0.11-0.59); Neutrophils # (auto) 8.03 K/uL (1.4-6.5); Neutrophils % (auto) 81.8 %; Platelet Count 186 K/uL (130-400); RDW Coefficient of Variation 12.4 % (11.5-14.5); RDW Standard Deviation 41.4 fL (36.4-46.3); Red Blood Count 5.05 M/uL (4.7-6.1); White Blood Count 9.82 K/uL (4.8-10.8)
[2021-09-30 10:11] LABS: BUN Creatinine Ratio 14.6 (10-20); Calcium 9.7 mg/dl (8.5-10.1); Creatinine Clr Calc Pharmacy 137.4 ml/min; Est GFR (Non-African American) 95.7 ml/min; Potassium 3.7 mmol/L (3.5-5.1)
[2021-09-30] MEDS: PANTOprazole 40 MG in SYRINGE 0 ML IV SCH (11:23)
--- NOTE | 2021-09-30 13:01 | XRay Report ---
XR KUB/Abdomen 1 view CLINICAL HISTORY: SBO. Follow-up small bowel dilatation COMPARISON STUDY: 09/29/2021 TECHNIQUE: Multiple supine radiographs were obtained. FINDINGS: Compared to the previous examination, moderately dilated loops of small bowel are again seen centrall y within the upper abdomen. There is no evidence for gas within the colon. NG tube is in place with i ts tip extending into the proximal body of the stomach. There is no evidence for organomegaly or miranda s intra-abdominal mass. No abnormal calcifications are seen along the course of the urinary tracts bi laterally. No acute osseous pathology. IMPRESSION: 1. Persistent dilatation of moderately dilated loops of small bowel within the upper abdomen. 2. There is an absence of air within the colon. ACT 112: Negative or not required by law. Electronically signed by: Ag Staton M.D. 09/30/2021 12:58 PM
--- NOTE | 2021-09-30 13:09 | Hospitalist Progress Note ---
Date of Service September 30, 2021 Assessment & Plan (1) SBO (small bowel obstruction): Plan: (1) SBO (small bowel obstruction): - General surgery consulted, recommending transfer for possible surgical intervention - KUB on 09/30 showing dilated loops of small bowel with no gas in colon - NG tube in place, 1000mL output in 12 hours since 5 am - Patient noticing increased flatulence and stool passing through ostomy today - IVF LR at 125mL/hr - d/c'd Zosyn on 09/29 AM - IV tylenol 1000mg and ketorolac 15mg IV for pain, last morphine dose 09/29 at 10am - zofran for nausea/vomiting - follow CBC, BMP (2) Crohn's disease: - S/p colectomy with ostomy in place - Hold azathioprine for now, restart when tolerating PO. (3) Slight leukocytosis, resolved - possibly due to Chron's, azathiprine held since admission; less likely infectious etiology Dispo: med/surg DVT prophylaxis: SCDs for DVT ppx FEN/GI: NPO Code status: Full Code (2) Crohn disease: (3) Colostomy present: Admission and Anticipated Discharge Date Admission Date: September 26, 2021 Supervising Physician Co-Signing Physician Notes Attending attestation Pt seen and examined in concert with Dr. Wellington, . Dr. Anguiano. In agreement with the documented findings as noted in the resident documentation with any exceptions or additions as noted here. Very mild nausea today, minimal change in ostomy output, +/- flatus. Pain still controlled on present regimen VS reviewed. On examination, S1/S2 nl RRR no MCG. CTAB. Abd BS+ve, TTP diffusely. Peristomal hernia. NGT in place SBO - surgical consult - surgery concerned for requirement of intervention at this facility - patient would wish for transfer to facility with surgeon who previously managed same. Else consider [place] vs. tertiary. Continue pain control with morphine, ondansetron PRN. Continue Zosyn. IVF @ maintenance. Trend BMP Leukocytosis - No new fevers or leukocytosis, will trend CBC. Crohns disease s/p colectomy w/ ostomy and peristomal hernia - holding azathioprine while NPO Else see resident/student documentation as noted. Subjective Patient feels better today, 1/10 pain well controlled with tylenol. Has noticed more flatulence and some stool today. No nausea or vomiting. Review of Systems Constitutional: no fever or chills Respiratory: no cough or SOB Cardiovascular: Additional Comments: no chest pain or palpitations, no calf pain Gastrointestinal: 04/27 GI pain this AM Genitourinary: no dysuria Physical Exam Constitutional: resting comfortably in bed, no acute distress Respiratory: normal respiratory effort, clear to auscultation bilaterally Cardiovascular: RRR no MRG appreciated Gastrointestinal (Abdomen): slight pain to palpation in epigastric area, left upper quadrant and around ostomy. NG tube in place and draining dark green fluid. Ostomy bag in place over lower left abdomen, no erythema, large peristomal hernia. Multiple surgical scars visible on abdomen. Some bowel sounds heard. Skin: warm and dry Neurologic: A&Ox3 Results & Data Results & Data ([facility]) Vital Signs (Past 12 Hours) Vital Signs Temp Pulse Resp BP Pulse Ox 09/30/21 07:38 36.8 C 71 18 146/88 H 92 (1) Crohn disease Digestive disease complication type: with intestinal obstruction Gastrointestinal tract location: unspecified location Qualified Code(s): K50.912 - Crohn's disease, unspecified, with intestinal obstruction
--- NOTE | 2021-09-30 14:38 | Surgery Progress Note ---
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 Fox at [facility] Plan: Would recommend transfer for surgical intervention as he has not significantly improved with 5 days of conservative management. KUB today showing persistent small bowel with no air in colon. NGT output is still high with about 2 liters in last 24 hours. HE was requiring a lot of IV morphine which could have decreased GI motility but NGT output has not decreased in last few days and ostomy output has not increased. Given his chronic parastomal hernia, prior parastomal hernia repairs/attempt at repairs, and persistent SBO he likely will need surgical intervention with hernia specialist. Patient would prefer Dr. Fox at [facility] who he usually follows with. Discussed with hospitalist team. Would continue NGT to LIS, Strict NPO, pain management as needed while awaiting transfer. Dr. Hernandez has seen and examined pt, discussed above recommendations with patient. Admission and Anticipated Discharge Date Admission Date: September 26, 2021 Subjective feeling better today but may require some pain medication emptied his colostomy bag for first time, small amount of stool in the bag now no n,v Physical Exam Constitutional: WD/WN, vitals as above + morbidly obese; no acute distress and not ill appearing Neck: normal visual inspection and trachea midline Respiratory: normal respiratory effort; no respiratory distress Gastrointestinal (Abdomen): Inspection/Auscultation: + abdominal surgical scar (multiple abdominal scars present); abdomen not distended Percussion/Palpation: + abdomen tender (at parastomal hernia) and abdomen soft; no guarding and abdomen not rigid LLQ colostomy with small amount of soft stool Large parastomal hernia, unable to be reduced on exam given size of hernia Skin: no rashes, warm and dry Psychiatric: Orientation: alert and oriented x 3 Results & Data ([facility]) Vital Signs (Past 12 Hours) Vital Signs Temp Pulse Resp BP Pulse Ox 09/30/21 07:38 36.8 C 71 18 146/88 H 92 Laboratory Results 09/30/21 09/30/21 Range/Units 09:15 09:15 WBC 9.82 (4.8-10.8) K/uL RBC 5.05 (4.7-6.1) M/uL Hgb 15.8 (14.0-18.0) g/dL Hct 46.1 (42-52) % MCV 91.3 (80-100) fL MCH 31.3 (25-34) pg MCHC 34.3 (32-36) g/dL RDW Std Deviation 41.4 (36.4-46.3) fL RDW Coeff of Marie 12.4 (11.5-14.5) % Plt Count 186 (130-400) K/uL MPV 10.9 H (7.4-10.4) fL Immature Gran % (Auto) 0.2 % Neut % (Auto) 81.8 % Lymph % (Auto) 9.1 % Potter % (Auto) 8.0 % Eos % (Auto) 0.7 % Baso % (Auto) 0.2 % Neut # (Auto) 8.03 H (1.4-6.5) K/uL Lymph # (Auto) 0.89 L (1.2-3.4) K/uL Potter # (Auto) 0.79 H (0.11-0.59) K/uL Eos # (Auto) 0.07 (0-0.5) K/uL Baso # (Auto) 0.02 (0-0.2) K/uL Immature Gran # (Auto) 0.02 (0.00-0.02) K/uL Sodium 140 (136-145) mmol/L Potassium 3.7 (3.5-5.1) mmol/L Chloride 99 (98-107) mmol/L Carbon Dioxide 26 (21-32) mmol/L Anion Gap 15 H (3-11) BUN 14 (6-23) mg/dl Creatinine 0.96 (0.6-1.4) mg/dl Est Cr Clr Drug Dosing 137.4 ml/min Est GFR ( Amer) 111.0 ml/min Est GFR (Non-Af Amer) 95.7 ml/min BUN/Creatinine Ratio 14.6 (10-20) Glucose 93 (70-99(Fasting)) mg/dl Calcium 9.7 (8.5-10.1) mg/dl Diagnostic Findings XR KUB/Abdomen 1 view CLINICAL HISTORY: SBO. Follow-up small bowel dilatation COMPARISON STUDY: 09/29/2021 TECHNIQUE: Multiple supine radiographs were obtained. FINDINGS: Compared to the previous examination, moderately dilated loops of small bowel are again seen centrally within the upper abdomen. There is no evidence for gas within the colon. NG tube is in place with its tip extending into the proximal body of the stomach. There is no evidence for organomegaly or gross intra- abdominal mass. No abnormal calcifications are seen along the course of the urinary tracts bilaterally. No acute osseous pathology. IMPRESSION: 1. Persistent dilatation of moderately dilated loops of small bowel within the upper abdomen. 2. There is an absence of air within the colon
[2021-10-01] MEDS: ACETAMINOPHEN 1,000 MG/100 ML VIAL IV SCH ×3 (02:33→18:45)
[2021-10-01] MEDS: LACTATED RINGER'S 1,000 ML IV SCH ×3 (06:09→21:13)
--- NOTE | 2021-10-01 10:21 | Communication Note ---
Date of Service: October 01, 2021 Patient not evaluated today, updated by Hospitalist team that insurance would not cover transfer to [facility] and family is quite upset due to this. He would prefer his surgeon Dr. Fox as he has managed him in his hernias in the past. Possibility of transfer to [place] for further management. Given his chronic parastomal hernia and no significant improvement with conservative measures in the last 6 days would still recommend transfer for surgical management of his bowel obstruction and large parastomal hernia.
[2021-10-01] MEDS: PANTOprazole 40 MG in SYRINGE 0 ML IV SCH (11:09)
--- NOTE | 2021-10-01 13:26 | Hospitalist Progress Note ---
Date of Service October 01, 2021 Assessment & Plan (1) SBO (small bowel obstruction): Plan: (1) SBO (small bowel obstruction): - NG tube in place, 1300mL output from 7pm on 09/30 to 1pm on 10/01 - General surgery consulted, recommending transfer for possible surgical inte rvention - initiating transfer to [facility] - KUB on 09/30 showing dilated loops of small bowel with no gas in colon - Patient noticing some flatulence and stool passing through ostomy today - IVF LR at 125mL/hr - d/c'd Zosyn on 09/29 AM - IV tylenol 1000mg and ketorolac 15mg IV ordered for pain, last tylenol dose 09/30 at 3am - zofran for nausea/vomiting - follow CBC, BMP (2) Crohn's disease: - S/p colectomy with ostomy in place - Hold azathioprine for now, restart when tolerating PO. (3) Slight leukocytosis, resolved - possibly due to Chron's, azathiprine held since admission; less likely infectious etiology Dispo: med/surg DVT prophylaxis: SCDs for DVT ppx FEN/GI: NPO Code status: Full Code (2) Crohn disease: (3) Colostomy present: Admission and Anticipated Discharge Date Admission Date: September 26, 2021 Supervising Physician Co-Signing Physician Notes Attending attestation Pt seen and examined in concert with Dr. Wellington, . Dr. Anguiano. In agreement with the documented findings as noted in the resident documentation with any exceptions or additions as noted here. Some nausea today, minimal change in ostomy output, +/- flatus. Pain still controlled on present regimen VS reviewed. On examination, S1/S2 nl RRR no MCG. CTAB. Abd BS+ve, TTP diffusely. Peristomal hernia. NGT in place SBO - surgical consult - surgery concerned for requirement of intervention at this facility and recommends transfer. Unable to transfer to [facility] as stepdown not covered by insurance. Unable to transfer to [facility] as on bypass. Will try [facility] vs. [facility]. Continue pain control with APAP, toradol PRN, ondansetron PRN. IVF @ maintenance. Trend BMP in AM Leukocytosis - No new fevers or leukocytosis, will trend CBC in AM Crohns disease s/p colectomy w/ ostomy and peristomal hernia - holding azathioprine while NPO Else see resident/student documentation as noted. Subjective Patient states he is not in pain today, no nausea or vomiting. Still small amounts of flatulence and stool through ostomy. Review of Systems Constitutional: no fever or chills Respiratory: no cough or SOB Cardiovascular: Additional Comments: no chest pain or palpitations Gastrointestinal: no abdominal pain or nausea Genitourinary: no dysuria Physical Exam Constitutional: resting comfortably in bed, no acute distress Respiratory: clear to auscultation bilaterally, normal respiratory effort Cardiovascular: RRR no MRG appreciated Gastrointestinal (Abdomen): slight pain to palpation in epigastric area, and around ostomy. NG tube in place and draining light green fluid. Ostomy bag in place over lower left abdomen, no erythema, large peristomal hernia. Multiple surgical scars visible on abdomen. Some bowel sounds heard. Skin: warm and dry Neurologic: A&Ox3 Results & Data Results & Data ([facility]) Vital Signs (Past 12 Hours) Vital Signs Temp Pulse Resp BP Pulse Ox 10/01/21 07:32 36.6 C 63 16 151/88 H 97 (1) Crohn disease Digestive disease complication type: with intestinal obstruction Gastrointestinal tract location: unspecified location Qualified Code(s): K50.912 - Crohn's disease, unspecified, with intestinal obstruction
--- NOTE | 2021-10-01 17:19 | Discharge Summary ---
Date of Service October 01, 2021 Admission HPI Per Admitting Provider Mr. Zavala is a 46-year-old male with a past medical history significant for Crohn's disease s/p colectomy with LLQ ostomy who presents today with worsening abdominal pain and decreased ostomy output. Shortly after eating 3 donuts this morning, patient developed diffuse, stabbing abdominal pain. He noted there was no output from his ostomy site for several hours. Due to the pain, and his history of Crohn's with SBOs in the past he presented to ED for evaluation. Of note patient usually goes to [facility] for his care. He had nausea and one episode of nonbloody emesis earlier today, otherwise he is doing well with no fever/chills, chest pain, palpitations, shortness of breath, hematochezia or melena. In ED, slightly hypertensive 142/83, otherwise vital signs within the limits and stable. Labs significant for WBC 12.61, glucose 144, alk phos 114. Otherwise all labs within normal limits, no electrolyte abnormalities. CT A/P showed multiple distended loops of small bowel measuring 14 mm in diameter, consistent with SBO. In ED, patient received morphine, Dilaudid, and Zofran. An NG tube was placed, KUB ordered confirming successful placement. Hospitalist team was consulted for admission. Admission Exam Per Admitting Provider General: awake, alert, no apparent distress, NG tube in place Head: Normocephalic, atraumatic ENT: PERRL, EOMI, no pharyngeal exudate, mucous membranes moist Chest: Clear to auscultation, on room air, no adventitious breath sounds Cardiac: Regular rate and rhythm, no murmur, no JVD, normal peripheral pulses, good capillary refill Abdominal: peristomal hernia present, ostomy in place; NABS x 4 quadrants, soft, nontender to palpation, no rebound, guarding or tenderness Extremities: Normal inspection, no peripheral edema or erythema, calfs nontender to palpation Psych: Normal mood and affect Neuro: AAO x 3, strength intact bilaterally and rated 5/5, no motor deficits, speech is clear, no peripheral sensory deficits Skin: no rash or erythema Principal Diagnosis Small bowel obstruction Discharge Exam Constitutional: resting comfortably in bed, no acute distress Respiratory: clear to auscultation bilaterally, normal respiratory effort Cardiovascular: RRR no MRG appreciated Gastrointestinal (Abdomen): slight pain to palpation in epigastric area, and around ostomy. NG tube in place and draining light green fluid. Ostomy bag in place over lower left abdomen, no erythema, large peristomal hernia. Multiple surgical scars visible on abdomen. Some bowel sounds heard. Skin: warm and dry Neurologic: A&Ox3 Discharge Data Allergies Allergy/AdvReac Type Severity Reaction Status Date / Time No Known Allergies Allergy Unverified 09/26/21 19:26 Consultations 09/26/21 19:47 ED Decision to Admit Stat 09/26/21 22:17 Consult General Surgery Routine 09/30/21 15:16 Burn CD for patient Stat Ordered Studies 09/26/21 16:50 CT abd pelvis IV con only Stat Hospital Course (1) SBO (small bowel obstruction): (2) Parastomal hernia: (3) Crohn disease: Pt admitted on 09/26 for SBO. Demonstrated minimal improvement with conservative management. General surgery recommended transfer to tertiary care with hernia specialist given pt's history of multiple hernia surgeries, ileostomy and chronic parastomal hernia complicating his SBO. Accepted for transfer to [facility] on 10/[address] Janie Landry MD. (1) SBO (small bowel obstruction): - NG tube with initially bilious -> feculent drainage and 2L+ output as hospital stay progressed - General surgery consulted, recommending transfer for possible surgical intervention - KUB on 09/30 showing dilated loops of small bowel with no gas in colon - Patient noticing some flatulence and stool passing through ostomy today - IVF LR at 125mL/hr - D/c'd Zosyn on 09/29 AM - Pain regimen- Tylenol 1000 mg IV q8h (2) Crohn's disease: - S/p colectomy with ostomy in place - Held azathioprine (3) Slight leukocytosis, resolved - Possibly due to Crohn's, azathioprine held since admission; less likely infectious etiology Dispo: med/surg DVT prophylaxis: SCDs for DVT ppx FEN/GI: NPO Code status: Full Code Total Time Total Time Spent Total Time Spent (In Minutes): 30 Discharge Plan Discharge Items Patient Disposition: Transfer Acute Care Hospital Reason For Visit: SBO Discharge Diagnosis: SBO Activity: Per Instructions section Non-emergency contact: Surgeon Call non-emergency contact if: you have any medication questions, your symptoms worsen and your pain is concerning for you Follow-up/Referrals: Sherwin Goldstein D.ORaeann [Primary Care Provider] - Diet: Nothing by Mouth Addtl Attending Provider Instructions: Jose Hassan is a 46y/o M who presented to the hospital on 09/26 with concerns of abdominal pain and discomfort; previously has a long standing history of Crohn's disease with an ileostomy and parastomal hernia. After initial attempts to manage his small bowel obstruction he had limited improvement in his obstruction and in conjunction with the general surgeons the decision was made for him to be transferred to [facility] for continued monitoring and potential surgical fixation. (1) SBO (small bowel obstruction): - NG tube in place, 1300mL output from 7pm on 09/30 to 1pm on 10/01 - General surgery consulted, [place] [facility] [place]30 showing dilated loops of small bowel with no gas in colon - IVF LR at 125mL/hr - d/c'd Zosyn on 09/29 AM - IV tylenol 1000mg for pain - zofran for nausea/vomiting - follow CBC, BMP (2) Crohn's disease: - S/p ileostomy with ostomy in place - Held azathioprine (3) Slight leukocytosis, resolved - possibly due to Chron's, azathiprine held since admission; less likely infectious etiology Dispo: med/surg DVT prophylaxis: SCDs for DVT ppx FEN/GI: NPO Code status: Full Code Pending Studies at Discharge: No Stand-Alone Forms: My [facility] mPowa, Work/School Release Skilled Items Patient informed of condition?: Yes DNR: No Discharge Level of Care: Other Communicable Disease: No Discharge Prognosis: Stable Lines: None Urinary Catheter: No Medications and DC Order Prescriptions: Continued azathioprine 50 mg tablet 150 mg PO QAM RF: 0 Discharge Orders: Discharge Order (Routine); Ordered 10/01/21 Ordered By: Muriel Wellington Admission Data Admit Date/Time: 09/26/21 21:01 Attending Provider: Cesar Ac Admit Provider: Deshawn Donaldson Primary Care Provider: Sherwin Goldstein Other Providers: Deshawn Donaldson ; Ayush Castro Other Interventions: Discharge Summary Assessment (RN) Last Done: 10/01/21 21:56 Supervising Physician Co-Signing Physician Notes Attending attestation Pt seen and examined in concert with St. Dr. Annmarie Newton. In agreement with the documented findings as noted in the resident documentation with any exceptions or additions as noted here. Ongoing nausea today, minimal change in ostomy output, +/- flatus. Pain still controlled on present regimen VS reviewed. On examination, S1/S2 nl RRR no MCG. CTAB. Abd BS+ve, TTP diffusely. Peristomal hernia. NGT in place SBO - surgical consult - surgery concerned for requirement of intervention at this facility and recommends transfer. Unable to transfer to [facility] as stepdown not covered by insurance. Unable to transfer to [facility] as on bypass. Will try [facility] vs. C. Continue pain control with APAP, toradol PRN, ondansetron PRN. IVF @ maintenance. Leukocytosis - No new fevers or leukocytosis, will trend CBC in AM Crohns disease s/p colectomy w/ ostomy and peristomal hernia - holding azathio britany while NPO Else see resident/student documentation as noted. Resident Activity Tracking Resident Involvement: Resident Care Provided Care Provided: Adult [facility]
--- NOTE | 2021-10-04 11:27 | Coding Query ---
CODING QUERY To promote full compliance with coding requirements relating to patient care, provider participation is requested in all cases of automatic lathe operator uncertainty. Please assist us with the question(s) below: Coding Question(s): Crohn's patient admitted with abdominal pain- with peristomal colostomy hernia. Pt transferred out to acute care faciltiy for attention to the hernia. No Crohns' flare up diagnosed. CT abdomen documented SBO partially originating at the entry of the parastomal hernia. Please document,if known or suspected, the etiology of the intestional obstruction. Thanks for your help. John Nicole [facility] Physician's Response(s): SBO suspected to be secondary to postoperative adhesions resulting from partial colectomy, ostoma and peristomal hernia Thank you! Principal Diagnosis: "that condition established after study, to be chiefly responsible for occasioning the admission of the patient to the hospital for care." Co-Existing Principal Diagnosis: "when two or more diagnoses equally meet the criteria for principal diagnosis as determined by the circumstances of admission, diagnostic work up, and/or therapy provided, and the Alphabetic Index, Tabular List, or another coding guideline does not provide sequencing direction, any one of the diagnoses may be sequenced first." "When the physician has documented what appears to be a current diagnosis in the body of the record, but has not included the diagnosis in the final diagnostic statement, the physician should be asked whether the diagnosis should be added." (Source Coding Clinic 2 QTR90. p3-4) ANNIE
== END 2021-10-01 22:38 | disposition short-term general hospital (02) | DRG 394 ==
LOC: ED 16:06 → 3E 21:01 → SUATTDRO 21:01 → 3E 22:10